=== PATIENT | male | born 2000 | race Caucasian/White ===

== ENCOUNTER 2025-02-01 18:32 | Emergency (ER) | payer MEDICAID, SELFPAY ==
[2025-02-01 18:32] VITALS: PULSE 118; O2SAT 98
[2025-02-01 19:42] VITALS: BP 113/76; PULSE 80; RESP 18; TEMP 36.8; O2SAT 99; BMI 27.3
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
== END 2025-02-01 20:08 | disposition home or self-care (01) ==
PROVIDERS: Emergency Provider Emergency Medicine
DX: R07.81 Pleurodynia (principal); V43.52XA Car driver injured in collision with other type car in traffic accident, initial encounter; Y92.410 Unspecified street and highway as the place of occurrence of the external cause
CPT/HCPCS: 99281